=== PATIENT | female | born 1955 | race Caucasian/White ===

== ENCOUNTER 2023-05-13 05:56 | Day surgery (SDC) | payer BC, MEDICARE ==
[2023-05-09 17:13] VITALS: BMI 16.6
[2023-05-13] MEDS ORDERED: LACTATED RINGERS 1,000 ML IV ONE ×2 (06:08)
[2023-05-13] MEDS ORDERED: LACTATED RINGERS 1,000 ML IV SCH (06:13)
[2023-05-13] MEDS ORDERED: LIDOCAINE 1% (10MG/ML) FOR IV START INTRADERMA PRN (06:13)
[2023-05-13 06:22] VITALS: RESP 16; TEMP 97.1
[2023-05-13] MEDS ORDERED: LIDOCAINE 2% INJ 20 MG/ML (2 ML VIAL) ONE (07:00)
[2023-05-13] MEDS ORDERED: PROPOFOL 10 MG/ML 20 ML VIAL IV ONE (07:00)
--- NOTE | 2023-05-13 07:24 | P.PCN ---
Date of Procedure: 05/13/23 Procedure(s) Performed: Brief history: Patient is a pleasant 67-year-old white female scheduled for an elective upper endoscopy as well as colonoscopy as a part of evaluation of evaluation of iron deficiency anemia. Procedure performed: Esophagogastroduodenoscopy with biopsy Colonoscopy with snare polypectomy Preoperative diagnosis: Iron deficiency anemia Anest[place]: [facility] [place] Procedure: After informed consent was obtained from the patient was brought into the endoscopy unit and IV sedation was administered by anesthesia under continuous monitoring. Initially upper endoscopy was done. The Olympus GF 160 video endoscope was inserted inserted into the mouth and esophagus intubated without any difficulty and was gradually advanced into the stomach and duodenum and carefully examined. The bulb and second part of the duodenum appeared normal. Biopsies were done from the duodenum to rule out celiac disease. The scope was then withdrawn into the stomach adequately insufflated with air and upon careful examination the antrum had multiple scattered erosions consistent with gastritis and biopsies were done from this area. Mucosa of the body, cardia and fundus appeared normal. The scope was then withdrawn into the esophagus. The GE junction was located at 40 cm to the incisors. It appeared regular with no erythema erosions or ulcerations. Rest of the esophagus appeared normal. Patient tolerated the procedure well. At this time the patient continued to remain sedation. Initial digital rectal examination was normal. Olympus CF 160 video colonoscope was then inserted into the rectum and gradually advanced to the cecum without any difficulty. Careful examination was performed as the scope was gradually being withdrawn. The prep was excellent. The cecum, ascending colon, transverse colon, appeared normal. Descending colon there was a 1 mm polyp removed by snare polypectomy. Rest of the descending colon, sigmoid colon and rectum appeared normal. In the proximal rectum there was a 3 mm polyp that was removed by snare polypectomy. Scattered sigmoid diverticulosis seen. Retroflexion was performed in the rectum and no lesions were noted. Patient tolerated the procedure well. Impression: 1. Upper endoscopy revealed antral erosive gastritis but no evidence of esophagitis or peptic ulcer disease 2. Colonoscopy revealed 1 cm; polyp and 5 mm proximal rectal polyp status post polypectomy and scattered sigmoid diverticulosis Recommendations: Findings of this examination were discussed with the patient as well as family. She was advised to follow with the biopsy results. If the biopsy results adenoma she can have a repeat colonoscopy in 3 years. In the meantime recommend starting [id number] Prilosec 20 mg daily for antral erosive gastritis and continue with iron supplements.
[2023-05-13 07:44] VITALS: BP 159/82; PULSE 72
== END 2023-05-13 08:09 | disposition home or self-care (01) ==
LOC: ORWHC2ENDO 05:56
PROVIDERS: ATTEND Internal Medicine Gastroenterology
DX: D12.4 Benign neoplasm of descending colon (principal); K57.30 Diverticulosis of large intestine without perforation or abscess without bleeding; K31.89 Other diseases of stomach and duodenum; D50.9 Iron deficiency anemia, unspecified; I10 Essential (primary) hypertension; F17.200 Nicotine dependence, unspecified, uncomplicated; F41.9 Anxiety disorder, unspecified; Z79.1 Long term (current) use of non-steroidal anti-inflammatories (NSAID); Z79.899 Other long term (current) drug therapy
CPT/HCPCS: 88305; 45385; 43239; J2704; J2001

== ENCOUNTER 2023-10-19 20:28 | Emergency (ER) | payer BC ==
[2023-10-19 21:15] VITALS: PULSE 82; RESP 20; TEMP 97.8
--- NOTE | 2023-10-19 21:56 | XR ---
EXAMINATION TYPE: XR shoulder complete RT DATE OF EXAM: 10/19/2023 9:45 PM CLINICAL INDICATION:Female, 67 years old with history of pain; [facility] COMPARISON: None TECHNIQUE: XR shoulder complete RT; shoulder was examined in AP, internally rotated and scapular Y p rojections. FINDINGS/IMPRESSION: * Comminuted right proximal humerus/surgical neck fracture with shortening. No definitive intra-gerri cular extension. * No additional fractures visualized.
--- NOTE | 2023-10-19 23:02 | ED ---
General Adult HPI - General Chief complaint: Fall Stated complaint: Fall-shoulder injury Time Seen by Provider: 10/19/23 23:01 Source: patient, EMS Mode of arrival: EMS Limitations: no limitations - History of Present Illness Initial comments: Patient presents to the ED by ambulance for evaluation with her with her daughters 2 and granddaughter at bedside. Patient states that she was leaving a concert tonight when she accidentally tripped and fell down 2 stairs, landing on her right shoulder. Patient is complaining of having right shoulder pain. Patient denies any other injury or site of pain. Patient denies head injury, LOC, headache, neck/back/lower extremity pain, chest pain, dyspnea, palpitations, dizziness, abdominal pain, nausea or vomiting, focal neuro deficit, or any other symptoms or complaints. - Related Data Home Medications Medication Instructions Recorded Confirmed Citalopram Hydrobromide [CeleXA] 20 mg PO HS 05/09/23 05/13/23 Risankizumab-Rzaa [Skyrizi] 1 dose SQ Q84D 05/09/23 05/13/23 Terbinafine [LamISIL] 250 mg PO DAILY 05/09/23 05/13/23 amLODIPine BESYLATE/BENAZEPRIL 1 cap PO DAILY 05/09/23 05/13/23 [Lotrel 10-20 mg Capsule] Allergies Allergy/AdvReac Type Severity Reaction Status Date / Time No Known Allergies Allergy Verified 05/13/23 06:13 Review of Systems ROS Statement: Those systems with pertinent positive or pertinent negative responses have been documented in the HPI. ROS Other: All systems not noted in ROS Statement are negative. Past Medical History Past Medical History: Hypertension, Skin Disorder Additional Past Medical History / Comment(s): PSORIASIS History of Any Multi-Drug Resistant Organisms: None Reported Past Surgical History: Appendectomy, Tonsillectomy Additional Past Surgical History / Comment(s): BILAT BUNIONECTOMY Past Anesthesia/Blood Transfusion Reactions: No Reported Reaction Past Psychological History: Anxiety Smoking Status: Current every day smoker Past Alcohol Use History: Occasional Past Drug Use History: None Reported - Past Family History Mother Family Medical History: No Reported History General Exam Limitations: no limitations General appearance: alert Head exam: Present: atraumatic, normocephalic Eye exam: Present: normal appearance ENT exam: Present: mucous membranes moist Neck exam: Present: normal inspection, full ROM, other (Trachea is in midline). Absent: tenderness Respiratory exam: Present: normal lung sounds bilaterally. Absent: respiratory distress, wheezes, rales, rhonchi, stridor, chest wall tenderness Cardiovascular Exam: Present: regular rate, normal rhythm, normal heart sounds, other (Normal radial pulses bilaterally) GI/Abdominal exam: Present: soft. Absent: distended, tenderness, guarding Extremities exam: Present: other (Tenderness is noted over right lateral shoulder and right proximal humerus; no right clavicular or AC joint tenderness; pelvis is stable and nontender; patient has full range of motion at bilateral hips) Back exam: Present: normal inspection. Absent: tenderness Neurological exam: Present: alert, oriented X3. Absent: motor sensory deficit Psychiatric exam: Present: normal affect Skin exam: Present: warm, dry, intact, normal color Course Vital Signs 10/19/23 20:59 Temperature 97.8 F Pulse Rate 82 Respiratory 20 Rate Blood Pressure 136/73 O2 Sat by Pulse 94 L Oximetry Medical Decision Making - Medical Decision Making Was pt. sent in by a medical professional or institution (Dr. PA, HOD CARRIER, urgent care, hospital, or correction...) When possible be specific @ -No Did you speak to anyone other than the patient for history (EMS, parent, family, police, friend...)? What history was obtained from this source @ -No Did you review nursing and triage notes (agree or disagree)? Why? @ -I reviewed and agree with nursing and triage notes Were old charts reviewed (outside hosp., previous admission, EMS record, old EKG, old radiological studies, urgent care reports/EKG's, correction records)? Report findings @ -No old charts were reviewed Differential Diagnosis (chest pain, altered mental status, abdominal pain women, abdominal pain men, vaginal bleeding, weakness, fever, dyspnea, syncope, headache, dizziness, GI bleed, back pain, seizure, CVA, palpatations, mental health, musculoskeletal)? @ -Fall, contusion, sprain, strain, fracture, dislocation EKG interpreted by me (3pts min.). @ -None done X-rays interpreted by me (1pt min.). @ -Right shoulder x-rays were reviewed myself and demonstrate a comminuted right proximal humerus fracture. I agree with the radiologist's interpretation as above. CT interpreted by me (1pt min.). @ -None done U/S interpreted by me (1pt. min.). @ -None done What testing was considered but not performed or refused? (CT, X-rays, U/S, labs)? Why? @ -None What meds were considered but not given or refused? Why? @ -None Did you discuss the management of the patient with other professionals (professionals i.e. DrNaif, PA, HOD CARRIER, lab, RT, psych nurse, social services analyst, enamel cracker, teacher, zoology technical officer, supportive employment case manager)? Give summary @ -No Was smoking cessation discussed for >3mins.? @ -No Was critical care preformed (if so, how long)? @ -No Were there social determinants of health that impacted care today? How? (Homelessness, low income, unemployed, alcoholism, drug addiction, transportation, low edu. Level, literacy, decrease access to med. care, correction, rehab)? @ -No Was there de-escalation of care discussed even if they declined (Discuss DNR or withdrawal of care, Hospice)? DNR status @ -No What co-morbidities impacted this encounter? (DM, HTN, Smoking, COPD, CAD, Cancer, CVA, ARF, Chemo, Hep., AIDS, mental health diagnosis, sleep apnea, morbid obesity)? @ -None Was patient admitted / discharged? Hospital course, mention meds given and route, prescriptions, significant lab abnormalities, going to OR and other pertinent info. @ -Patient's right shoulder x-rays demonstrated a comminuted right proximal humerus fracture. Patient was placed in a right shoulder immobilizer. Patient states that she has family at home that can help her. Patient was provided with an EDC starter pack of Tylenol #3's. Will discharge patient home at this time with her family. Patient was instructed to follow up closely with orthopedic surgery. Strict return instructions were provided. Patient feels comfortable with this plan. Undiagnosed new problem with uncertain prognosis? @ -No Drug Therapy requiring intensive monitoring for toxicity (Heparin, Nitro, Insulin, Cardizem)? @ -No Were any procedures done? @ -No Diagnosis/symptom? @ -Comminuted right proximal humerus fracture Acute, or Chronic, or Acute on Chronic? @ -Acute Uncomplicated (without systemic symptoms) or Complicated (systemic symptoms)? @ -default Side effects of treatment? @ -No Exacerbation, Progression, or Severe Exacerbation? @ -No Poses a threat to life or bodily function? How? (Chest pain, [place], [place], pneumonia, PE, COPD, DKA, ARF, appy, cholecystitis, CVA, Diverticulitis, Homicidal, Suicidal, threat to staff... and all critical care pts) @ -No - Radiology Data Right shoulder x-rays: 1. Comminuted right proximal humerus/surgical neck fracture with shortening. No definitive intra-articular extension. 2. No additional fractures visualized. Disposition Clinical Impression: Fall, Closed fracture of right proximal humerus Disposition: HOME SELF-CARE Condition: Stable Instructions (If sedation given, give patient instructions): Fall Prevention (ED), Proximal Humerus Fracture (ED), Shoulder Immobilizer (ED) Additional Instructions: Return to the ER if you develop new or worsening pain or symptoms. Follow up closely with orthopedic surgery. Is patient prescribed a controlled substance at d/c from ED?: No Referrals: Jonn Zapien MD [Primary Care Provider] - 1-2 days Christopher Kitchen DO [Doctor of Osteopathic Medicine] - 1-2 days Time of Disposition: 23:30
[2023-10-19] MEDS ORDERED: HYDROmorphone 1 MG/ML 1 ML SYRINGE IVP STA (23:13)
[2023-10-19] MEDS ORDERED: ACET/COD 300 MG/30 MG STARTER PACK 6 TAB BTL PO STA (23:13)
[2023-10-19 23:54] VITALS: BP 145/73
== END 2023-10-19 23:47 | disposition home or self-care (01) ==
LOC: EC 20:28
DX: S42.201A Unspecified fracture of upper end of right humerus, initial encounter for closed fracture (principal); I10 Essential (primary) hypertension; F17.200 Nicotine dependence, unspecified, uncomplicated; F41.9 Anxiety disorder, unspecified; Z79.899 Other long term (current) drug therapy; W10.9XXA Fall (on) (from) unspecified stairs and steps, initial encounter
CPT/HCPCS: 73030; 99284; 96374; L3670; J1170

== ENCOUNTER → 2023-10-22 | Outpatient (CLI) | payer BC ==
--- NOTE | 2023-10-22 08:36 | CT ---
EXAMINATION TYPE: CT shoulder RT wo con DATE OF EXAM: 10/22/2023 COMPARISON: Right shoulder x-ray October 19, 2023 HISTORY: Partial displaced fracture surgical neck RT humerus CT DLP: 224.40 mGycm Automated exposure control for dose reduction was used. FINDINGS: Acute comminuted displaced fracture through the surgical neck of the right proximal humerus is redemo nstrated. There are a few small fracture fragments. The distal fracture fragment is impacted and slig htly medially and anteriorly displaced. Glenohumeral joint is maintained. There is fairly moderate to severe narrowing of the acromioclavicular joint incidentally noted. The visualized ribs are intact. Visualized right lung is clear. IMPRESSION: As above.
== END | disposition home or self-care (01) ==
LOC: RADCTMAIN 07:42
PROVIDERS: ATTEND Orthopaedic Surgery
DX: S42.221A 2-part displaced fracture of surgical neck of right humerus, initial encounter for closed fracture (principal); X58.XXXA Exposure to other specified factors, initial encounter